=== PATIENT | female | born 1950 | race Caucasian/White ===

== ENCOUNTER → 2018-04-19 | Outpatient (CLI) | payer MEDICARE ==
[2018-04-19 12:18] LABS: Basophils % (A) 1 %; Eosinophils # (A) 0.2 k/uL (0-0.7); Eosinophils % (A) 3 %; HCT 38.8 % (34.0-46.0); HGB 12.3 gm/dL (11.4-16.0); Lymphocytes # (A) 1.3 k/uL (1.0-4.8); Lymphocytes % (A) 25 %; MCH 30.3 pg (25.0-35.0); MCHC 31.8 g/dL (31.0-37.0); MCV 95.4 fL (80.0-100.0); Mean Platelet Volume 7.9; Monocytes # (A) 0.3 k/uL (0-1.0); Monocytes % (A) 6 %; Neutrophils # (A) 3.1 k/uL (1.3-7.7); Neutrophils % (A) 61 %; Platelet Count 177 k/uL (150-450); RBC 4.07 m/uL (3.80-5.40); RDW 13.2 % (11.5-15.5); WBC 5.1 k/uL (3.8-10.6)
[2018-04-19 15:41] LABS: Erythrocyte Sedimentation Rate 17 mm/hr (0-20)
== END | disposition home or self-care (01) ==
LOC: LABWHC1 11:38
PROVIDERS: ATTEND Physical Medicine & Rehabilitation
DX: M47.812 Spondylosis without myelopathy or radiculopathy, cervical region (principal); G25.2 Other specified forms of tremor; G24.9 Dystonia, unspecified; M50.122 Cervical disc disorder at C5-C6 level with radiculopathy; G56.01 Carpal tunnel syndrome, right upper limb; M47.817 Spondylosis without myelopathy or radiculopathy, lumbosacral region; M51.17 Intervertebral disc disorders with radiculopathy, lumbosacral region; M31.6 Other giant cell arteritis; Z98.890 Other specified postprocedural states
CPT/HCPCS: 36415; 85025; 85652; 86140

== ENCOUNTER → 2018-04-26 | Outpatient (CLI) | payer MEDICARE ==
--- NOTE | 2018-05-01 09:22 | P.ARTDOP ---
Arterial Doppler LOWER EXTREMITY ARTERIAL DOPPLER: DATE OF SERVICE: 04/26/2018 Reason for study: Bilateral leg pain. Doppler waveforms: Multiphasic bilaterally throughout. Pulse volume recording: []. Pressure gradients: None. Ankle-brachial indices: Greater than 1 bilaterally. Toe pressures: [] on the right, [] on the left Impression: Normal study.
== END | disposition home or self-care (01) ==
LOC: RADUSWWP 11:36
PROVIDERS: ATTEND Physical Medicine & Rehabilitation
DX: M48.062 Spinal stenosis, lumbar region with neurogenic claudication (principal); M79.604 Pain in right leg; M79.605 Pain in left leg
CPT/HCPCS: 93922

== ENCOUNTER → 2022-07-28 | Outpatient (CLI) | payer MEDICARE ==
[2022-07-28 12:47] LABS: Partial Thromboplastin Time 23.7 sec (22.0-30.0); Prothrombin Time 10.6 sec (9.0-12.0)
[2022-07-28 21:59] LABS: HCT 38.2 % (37.2-46.3); HGB 11.4 g/dL (12.0-15.0); MCHC 29.8 g/dL (32.0-37.0); MCV 87.2 fL (80.0-97.0); Mean Platelet Volume 11.7 fL (9.5-12.2); NRBC Per 100 WBC 0 /100 WBCS (0.0-0.0); Platelet Count 156 X 10*3/uL (140-440); RBC 4.38 X 10*6/uL (4.10-5.20); RDW 14.9 % (11.5-14.5); WBC 4.07 X 10*3/uL (4.50-10.00)
[2022-07-28 23:26] LABS: African American GFR (CKD) 104.8 (60.0-200.0); Albumin 4.3 g/dL (3.8-4.9); Albumin/Globulin Ratio 1.65 (1.60-3.17); Blood Urea Nitrogen 13.2 mg/dL (9.0-27.0); Calcium 9.4 mg/dL (8.7-10.3); Globulin 2.6 g/dL (1.6-3.3); Non-African American GFR(CKD) 90.4 (60.0-200.0); Potassium 4.2 mmol/L (3.5-5.5); Total Bilirubin 0.6 mg/dL (0.30-1.20); Total Protein 6.9 g/dL (6.2-8.2)
[2022-07-29 03:29] LABS: Appearance,Urine Clear (Clear); Bilirubin,Urine Negative (Negative); Blood,Urine Negative (Negative); Color,Urine Yellow (Yellow); Ketones,Urine Negative (Negative); Nitrite,Urine Negative (Negative); Specific Gravity,Urine 1.009 (1.001-1.030); Urobilinogen,Urine 0.2 (0.2,1.0)
[2022-07-29 03:36] LABS: Bacteria,Urine None Seen /HPF (None Seen)
== END | disposition home or self-care (01) ==
LOC: LABPAT 11:12
PROVIDERS: ATTEND Orthopaedic Surgery
DX: Z01.812 Encounter for preprocedural laboratory examination (principal); M16.11 Unilateral primary osteoarthritis, right hip; I51.7 Cardiomegaly; R94.31 Abnormal electrocardiogram [ECG] [EKG]
CPT/HCPCS: 80053; 81001; 85027; 85610; 85730; 87070; 93005

== ENCOUNTER 2022-08-08 07:20 | Day surgery (SDC) | payer MEDICARE ==
[2022-08-01 14:11] VITALS: BMI 29.8
[~2022-08-08 07:20] MED LIST: ACETAMINOPHEN TAB 500 MG TAB PO PRN; DEXAMETHASONE SOD PHOSPHATE 4 MG/ML 1 ML VIAL IV ONE; GABAPENTIN 300 MG CAP PO PRN; HYDROmorphone 0.5 MG/0.5 ML SYRINGE IVP PRN; LIDOCAINE 1% (10MG/ML) FOR IV START INTRADERMA PRN; MELOXICAM 7.5 MG TAB PO PRN; ONDANSETRON 4 MG/2 ML VIAL IVP ONE; TRANEXAMIC ACID IN NACL,ISO-OS 1,000 MG in SALINE 1 100ML.BAG IVPB PRN
[2022-08-08] MEDS: LACTATED RINGERS 1,000 ML IV SCH ×3 (08:16→20:42)
[2022-08-08] MEDS ORDERED: MIDAZOLAM 2 MG/2 ML VIAL IVP ONE (08:33)
[2022-08-08] MEDS ORDERED: GLYCOPYRROLATE 0.2 MG/ML 2 ML VIAL ONE (08:53)
[2022-08-08] MEDS ORDERED: PHENYLEPHRINE-0.9% NACL SYG 1,000 MCG/10 ML SYRINGE ONE (08:53)
[2022-08-08] MEDS ORDERED: ROPIVACAINE 5 MG/ML 30 ML VIAL ONE (08:53)
[2022-08-08] MEDS ORDERED: fentaNYL (PF) 50 MCG/ML 2 ML AMP ONE (08:53)
[2022-08-08] MEDS ORDERED: ePHEDrine 50 MG/ML 1 ML VIAL ONE (08:53)
[2022-08-08] MEDS ORDERED: PROPOFOL 10 MG/ML 20 ML VIAL IV ONE (08:53)
[2022-08-08] MEDS ORDERED: WATER FOR INJECTION, STERILE 10 ML VIAL IV ONE (08:53)
[2022-08-08] MEDS ORDERED: MIDAZOLAM 2 MG/2 ML VIAL ONE (08:53)
[2022-08-08] MEDS ORDERED: SODIUM CHLORIDE 0.9% (PF) 10 ML VIAL ONE (08:53)
[2022-08-08] MEDS ORDERED: ceFAZolin 1,000 MG in SODIUM CHLORIDE 0.9% 1,000 ML IRRIGATION ONE (08:59)
[2022-08-08] MEDS ORDERED: ROPIVACAINE 5 MG/ML 30 ML VIAL MISCELLANE ONE ×2 (09:29→09:59)
[2022-08-08] MEDS ORDERED: LACTATED RINGERS 1,000 ML IV ONE (09:53)
--- NOTE | 2022-08-08 10:07 | P.OP ---
Date of Procedure: 08/08/22 Preoperative Diagnosis: Severe osteoarthritis right hip Postoperative Diagnosis: Severe osteoarthritis right hip Procedure(s) Performed: Right total hip arthroplasty with a direct anterior approach Implants: [employer] Polarstem standard size 5 with a collar [employer] R3, 3 hole hemispherical acetabular shell, 52 mm [employer] Reflection 6.5 mm cancellus screw, 20 mm 2 [employer] R3, XLPE 20 acetabular liner [employer]hew Oxinium femoral head 36 m, +0 All components were press-fit. The articulation is Oxinium on polyethylene. Anesthesia: spinal Surgeon: Wilfred Garcia [employer] Text[employer] Supervisor #1: Yaquelin Booker Estimated Blood Loss (ml): 500 Pathology: other (Femoral head) Condition: stable Disposition: PACU Indications for Procedure: After failure of conservative treatment we discussed the surgical and nonsurgical treatment options at length. Patient wishes to proceed with a total hip arthroplasty with a direct anterior approach. Complications specific to this procedure were discussed at length, including but not limited to infection, leg length discrepancy, dislocation, nerve injury, and fracture. Covid-19 was also discussed at length with the patient, and they are aware of the current policies and procedures. The patient was given the option of delaying surgery, but they elect to proceed knowing these risks. Patient is aware of all these complications and informed consent was obtained Operative Findings: The operative findings are consistent with severe osteoarthritis of the right hip Description of Procedure: The patient was seen and evaluated in the preoperative area and the consent was reviewed. The operative site was marked with a skin marker. The patient verified the procedure and operative site. A GHULAM block was placed by anesthesia in the preoperative area. The patient was then brought to the operating room and given preoperative antibiotics intravenously. 1 g of Tranexamic acid was also given intravenously. A spinal anesthetic was administered by the anesthesia department. The patient was then placed on the [place] table with the bony prominences well-padded. The hip area was then prepped with a ChloraPrep solution and draped in the usual sterile fashion. A universal timeout was then performed, which confirmed the patient's name, surgical site, ALLERGIES, and procedure being performed on the consent. Next the incision site was located at 1 cm distal and 4 cm lateral to the anterior superior iliac spine. The skin and subcutaneous tissues were sharply incised. Incision was carefully dissected down to the fascia overlying the tensor fascia chelsie muscle. This fascia was then incised in line with the muscle fibers. Care was taken to stay laterally in order to avoid injuring the lateral femoral cutaneous nerve. Next, using blunt finger dissection, the tensor fascia chelsie muscle was dissected off its investing fascia. The muscle was then carefully retracted laterally with a cobra retractor over the lateral neck of the femur. Next, the circumflex vessels were identified and cauterized using the Aquamantis device. The anterior hip capsule was then exposed. The capsule was then opened and an inverted T fashion. The retractors were then placed intracapsularly. The retractors were maintained intracapsular throughout the procedure. The proximal femur was then visualized. Fluoroscopic x-rays were then taken in order to evaluate the preoperative leg lengths. A small amount of traction was placed on the leg. The femoral neck was then osteotomized at the appropriate level above the lesser trochanter. A small wedge of bone was then removed from the remaining femoral head. Next, using a corkscrew the femoral head was removed from the acetabulum. On gross visual inspection, the femoral head had complete loss of articular cartilage and multiple periarticular osteophytes. The femoral head was then measured. Attention was then turned to the acetabulum. The acetabulum was exposed and any remaining labrum was excised. Sequential reaming of the acetabulum was performed using fluoroscopic guidance until there was a good bed of bleeding cancellus bone. When the appropriate size was reached, a trial was then placed. The position and fit of the trial was checked with fluoroscopy. The trial was then removed. Then, using fluoroscopic guidance, the final implant was impacted at 20 of anteversion and 40 of abduction, and fully seated in the acetabulum. 2 screws were then placed in the acetabulum. Again fluoroscopy was used to check position of the screws. Next, the liner was then impacted, with a 20 elevated liner located in the anterior superior quadrant. Component locking was confirmed. Attention was then directed to the femur. With the aid of the [place] table, the femur was externally rotated to approximately 130, extended, and adducted under the opposite leg. A side hook was then placed under the proximal femur, and the side hook elevator was used to elevate the proximal femur while releasing the capsule. Retractors were then placed. A capsular release was performed, as well as a release of the conjoined tendon, which afforded excellent visualization of the proximal femur. Next, a box osteotome was used to lateralize the proximal femur. A stone hand was then used to locate the femoral canal. Sequential broaching was then performed with appropriate size which afforded excellent fixation in the proximal femur. A trial was then placed with appropriate head and neck, and the hip was gently reduced with the aid of the [place] table. Fluoroscopy was then used to check position of the components, as well as to evaluate the leg lengths and offset. The leg lengths and offset were measured as closely as possible to ensure stability of the hip. The hip was then gently dislocated and the trials were then removed. Final implants were then impacted and the hip was again reduced. Final fluoroscopic x-rays confirmed that the components were in anatomic position. The leg lengths and offset were measured and were found to coincide with the trial measurements. The hip was also taken through range of motion, and found to be stable. The hip was then copiously irrigated with antibiotic solution with pulsatile lavage. The hip was then irrigated with Irrisept solution. The soft tissues were then injected with a ropivacaine solution. A second dose of 1 g of Tranexamic acid was also given intravenously. The fascia was then closed with 2-0 strata fix suture. The subcutaneous tissue was closed with 3-0 Vicryl. The subcuticular tissue was closed with 3-0 strata fix suture. The skin was then closed with Exofin skin glue. After the glue and dried, and Optifoam silver impregnated dressing was applied. The patient was then transferred to the recovery room in stable condition. The customer assistant LAURYN Pnea was required due to the complexity of surgery, and the need for skilled medical or surgical instrument maker for positioning, draping, exposure, retraction, and closure of the wound.
--- NOTE | 2022-08-08 10:20 | XR ---
EXAMINATION TYPE: XR Hip Limited RT DATE OF EXAM: 08/08/2022 COMPARISON: NONE HISTORY: Postop TECHNIQUE: One view submitted. FINDINGS: There is postsurgical change in near anatomic alignment. DAP 1.2229 IMPRESSION: 1. Postoperative change. Appears in near-anatomic alignment.
--- NOTE | 2022-08-08 10:21 | FL ---
EXAMINATION TYPE: FL guidance operating room DATE OF EXAM: 08/08/2022 HISTORY: Fluoroscopy time 1.2229 DAP fluoroscopy provided. IMPRESSION: 1. Fluoroscopy time.
[2022-08-08] MEDS ORDERED: ONDANSETRON 4 MG/2 ML VIAL IVP PRN (10:32)
[2022-08-08] MEDS ORDERED: NALOXONE 0.4 MG/ML 1 ML VIAL IV PRN (10:32)
[2022-08-08] MEDS ORDERED: HYDROmorphone 0.5 MG/0.5 ML SYRINGE IVP PRN ×3 (10:32)
[2022-08-08] MEDS ORDERED: MAGNESIUM HYDROXIDE 2,400 MG/10 ML CUP PO PRN (10:32)
--- NOTE | 2022-08-08 11:09 | XR ---
EXAMINATION TYPE: XR Hip Limited RT DATE OF EXAM: 08/08/2022 COMPARISON: NONE HISTORY: Postop TECHNIQUE: One view submitted. FINDINGS: There is postsurgical change in near anatomic alignment. There is soft tissue edema and emphysema. IMPRESSION: 1. Postoperative change. Appears in near-anatomic alignment.
[2022-08-08] MEDS ORDERED: FAMOTIDINE 20 MG TAB PO PRN (14:30)
--- NOTE | 2022-08-08 14:38 | P.CONS ---
History of Present Illness - Reason for Consult Consult date: 08/08/22 HTN Requesting physician: Wilfred Garcia - Chief Complaint knee pain - History of Present Illness Patient is a 72-year-old female with Crohn's disease, MAKSIM, GERD, hypertension, SVT, hypothyroidism, essential tremor and ALLERGIC rhinitis who presented for direct anterior right total hip arthorplasty. She tolerated the procedure well without any immediate post-op complications. Patient seen and examined at bedside. She is having slight nausea, she states that she did get a little lightheaded when she stood up. She denies any chest pain or shortness of breath. She had a sinus infection approximately 4 weeks ago but denies any more recent cough, cold, fever, flu. Vital signs reviewed General: nontoxic, no distress, appears at stated age Derm: warm, dry ENT: Nose and ears atraumatic, no thrush, no pharyngeal erythema Cardiovascular: S1S2 reg, no murmur, positive posterior tibial pulse bilateral, no edema Lungs: clear to auscultation bilateral, no rhonchi, no rales, no wheeze, no accessory muscle use Abdominal: soft, nontender to palpation, no guarding, no appreciable organomegaly, normal bowel sounds Ext: no gross muscle atrophy, no contractures Psych: Alert, oriented, appropriate affect Assessment: 72-year-old female status post direct anterior right total hip arthorplasty MAKSIM GERD Hypertension Hypothyroidism History of SVT Imaging: None new Data Review: Preop labs reviewed and hemoglobin 11.4 Plan: - Hold enalapril/hydrochlorothiazide until postop labs are back -Patient has already been evaluated by her instrument/control technician who will manage per inflectra post op - resume levothyroixine 50 mcg daily, flnose 1 spray each nostril daily, zyrtec 10 mg daily - follow BP - check CBC and BMP in AM - Monitor closely for infection given use of TNF- alpha inhibitor for crohns disease. Thank you for allowing us to participate in the care of this pleasant patient. Do not hesitate to contact us with questions. Someone can be reached from the [facility] hospitalist group all hours of the day at [phone] or via [employer]. Past Medical History Past Medical History: Fibromyalgia, GERD/Reflux, Hyperlipidemia, Hypertension, Mitral Valve Prolapse (MVP), Osteoarthritis (OA), Sleep Apnea/CPAP/BIPAP, Thyroid Disorder Additional Past Medical History / Comment(s): CROHN'S. TREMORS. USES CPAP History of Any Multi-Drug Resistant Organisms: None Reported Past Surgical History: Back Surgery, Bowel Resection, Cholecystectomy, Hernia Repair, Hysterectomy, Tonsillectomy Additional Past Surgical History / Comment(s): BILAT KNEE SCOPES. RT SHOULDER. BILAT CTR. BILAT BUNIONECTOMY. LT OOPHORECTOMY Past Anesthesia/Blood Transfusion Reactions: Postoperative Nausea & Vomiting (PONV) Past Psychological History: Anxiety Smoking Status: Never smoker Past Alcohol Use History: Occasional Past Drug Use History: None Reported - Past Family History Sister(s) Family Medical History: Cancer Medications and Allergies Home Medications Medication Instructions Recorded Confirmed Type Acetaminophen [Tylenol Extra 1,000 mg PO BID PRN 08/01/22 08/01/22 History Strength] Aspirin EC [Ecotrin Low Dose] 81 mg PO DAILY 08/01/22 08/01/22 History Calcium Citrate/Vitamin D3 1 each PO DAILY 08/01/22 08/01/22 History [Citracal + D Maximum Caplet] Cetirizine HCl [Zyrtec] 10 mg PO DAILY 08/01/22 08/01/22 History Enalapril/Hydrochlorothiazide 1 each PO DAILY 08/01/22 08/01/22 History [Vaseretic 5-12.5 mg Tab] Estrogens, Conjugated Cream 1 applicator VAGINAL SA 08/01/22 08/01/22 History [Premarin Vaginal Cream] Famotidine [Pepcid AC] 10 mg PO DAILY PRN 08/01/22 08/01/22 History Fluticasone Nasal [place] [Flonase 1 spray EA NOSTRIL DAILY 08/01/22 08/01/22 History Nasal [place]] Infliximab-Dyyb [Inflectra] 500 mg IV Q56D 08/01/22 08/01/22 History Levothyroxine Sodium [Synthroid] 50 mcg PO DAILY 08/01/22 08/01/22 History Multivit with Calcium,Iron,Min 1 each PO DAILY 08/01/22 08/01/22 History [Women's Multivitamin] Propranolol [Inderal] 20 mg PO BID 08/01/22 08/01/22 History Vitamin B Complex 1 each PO DAILY 08/01/22 08/01/22 History Aspirin [Adult Low Dose Aspirin EC] 81 mg PO BID #1 tab 08/08/22 Rx HYDROcodone/APAP 7.5-325MG [[place] 1 - 2 tab PO Q6HR PRN #32 tab 08/08/22 Rx 7.5-325] Meloxicam 7.5 mg PO DAILY PRN #30 tablet 08/08/22 Rx Ondansetron Odt [Zofran Odt] 4 mg PO Q8HR PRN #14 tab 08/08/22 Rx Sennosides-Docusate Sodium 1 tab PO BID #60 tablet 08/08/22 Rx [Senokot-S] Allergies Allergy/AdvReac Type Severity Reaction Status Date / Time ampicillin Allergy Rash/Hives Verified 08/08/22 07:54 Milk Containing Products Allergy SYNCOPE Verified 08/08/22 07:54 [Dairy] Penicillins Allergy Rash/Hives Verified 08/08/22 07:54 sulfamethoxazole Allergy ANGIOEDEMA Verified 08/08/22 07:54 [From Bactrim] trimethoprim [From Bactrim] Allergy ANGIOEDEMA Verified 08/08/22 07:54 levofloxacin [From Levaquin] AdvReac Confusion Verified 08/08/22 07:54 wheat AdvReac Diarrhea Verified 08/08/22 07:54 Physical Exam Osteopathic Statement: *. No significant issues noted on an osteopathic structural exam other than those noted in the History and Physical/Consult. Vitals: Vital Signs Temp Pulse Pulse Resp BP Pulse Ox 08/08/22 12:01 59 L 16 147/71 98 08/08/22 11:46 51 L 16 152/76 98 08/08/22 11:31 63 16 158/71 98 08/08/22 11:15 59 L 16 154/77 100 08/08/22 11:03 60 16 146/78 100 08/08/22 10:45 58 L 16 137/71 100 08/08/22 10:28 96.9 F L 65 16 93/47 100 08/08/22 08:45 61 16 170/81 100 08/08/22 08:15 98.6 F 64 20 175/91 97 Intake and Output 08/07/22 08/08/22 08/08/22 22:59 06:59 14:59 Intake Total 1151 Output Total 900 Balance 251 Intake: IV 1151 Output: Urine 400 Estimated Blood Loss 500 Other: Weight 92.2 kg
[2022-08-08] MEDS: PROPRANOLOL 20 MG TAB PO SCH ×2 (14:51→22:38)
[2022-08-08] MEDS: HYDROcodone/APAP 7.5-325MG 1 EACH TAB PO PRN (20:39)
[2022-08-08] MEDS: ASPIRIN 81 MG PO SCH (20:39)
[2022-08-08] MEDS ORDERED: SENNOSIDES-DOCUSATE SODIUM 1 EACH TAB PO SCH (21:00)
[2022-08-09] MEDS: ACETAMINOPHEN TAB 500 MG TAB PO PRN ×2 (05:21→11:39)
[2022-08-09] MEDS ORDERED: LEVOTHYROXINE 50 MCG TAB PO SCH (06:30)
[2022-08-09 08:18] VITALS: BP 119/65; PULSE 66; RESP 18; TEMP 99.3
[2022-08-09] MEDS ORDERED: LORATADINE 10 MG TAB PO SCH (09:00)
[2022-08-09] MEDS ORDERED: MELOXICAM 7.5 MG TAB PO SCH (09:00)
[2022-08-09] MEDS ORDERED: FLUTICASONE 50MCG/SPRAY NASAL 16GM EA NOSTRIL SCH (09:00)
--- NOTE | 2022-08-09 09:11 | P.DS ---
Providers Date of admission: 08/08/2022 Expected date of discharge: 08/09/22 Attending physician: Wilfred Garcia Consults: 08/08/22 10:32 Consult Physician Routine Consulting Provider: Adore Agrawal Consult Reason/Comments: Medical management Do you want consulting provider notified?: Yes Primary care physician: Stated None - Discharge Diagnosis(es) (1) Status post total hip replacement, right Current Visit: Yes Status: Acute (2) Right hip pain Current Visit: Yes Status: Acute (3) Hyperlipidemia Current Visit: Yes Status: Acute (4) Hypertension Current Visit: Yes Status: Acute (5) Thyroid disorder Current Visit: Yes Status: Acute (6) Fibromyalgia Current Visit: Yes Status: Acute (7) Osteoarthritis of right hip Current Visit: Yes Status: Acute Hospital Course: This is a pleasant 72-year-old female who presented with severe osteoarthritis of the right hip who failed outpatient conservative therapy. She was admitted for a right total hip arthroplasty with direct anterior approach. The patient tolerated the procedure well and did well postoperatively. Condition on day of discharge stable. Patient feels she is ready for discharge today. Patient will be discharged home. Patient was cleared preoperatively for surgery by medicine. Patient currently denies any nausea, vomiting, fever, or chills. Patient is eating and voiding freely without difficulty. Patient may shower Optifoam dressing intact. Patient may remove Optifoam dressing in 7 days and shower without a dressing at that time. Patient should refrain from driving until at least after their first follow-up appointment in the office. She may weight-bear as tolerated on the right lower extremity with the assistance of a walker. MAPS has been reviewed. An "Opiod Start Talking" Form has been signed and placed in the patient's chart. A prescription has been written for hydrocodone 7.5 mg/25 mg, 1-2 tabs every 6 hours as needed for acute pain, dispensed #32. Patient's other medical diagnoses include hypertension, hyperlipidemia, thyroid disorder, and fibromyalgia. Procedures: Right total hip arthroplasty with direct anterior approach Patient Condition at Discharge: Stable Plan - Discharge Summary Discharge Rx Participant: No New Discharge Prescriptions: New Aspirin [Adult Low Dose Aspirin EC] 81 mg PO BID #1 tab HYDROcodone/APAP 7.5-325MG [[place] 7.5-325] 1 - 2 tab PO Q6HR PRN #32 tab PRN Reason: Pain Ondansetron Odt [Zofran Odt] 4 mg PO Q8HR PRN #14 tab PRN Reason: Nausea Meloxicam 7.5 mg PO DAILY PRN #30 tablet PRN Reason: Pain Sennosides-Docusate Sodium [Senokot-S] 1 tab PO BID #60 tablet No Action Enalapril/Hydrochlorothiazide [Vaseretic 5-12.5 mg Tab] 1 each PO DAILY Infliximab-Dyyb [Inflectra] 500 mg IV Q56D Multivit with Calcium,Iron,Min [Women's Multivitamin] 1 each PO DAILY Levothyroxine Sodium [Synthroid] 50 mcg PO DAILY Fluticasone Nasal [place] [Flonase Nasal [place]] 1 spray EA NOSTRIL DAILY Cetirizine HCl [Zyrtec] 10 mg PO DAILY Vitamin B Complex 1 each PO DAILY Calcium Citrate/Vitamin D3 [Citracal + D Maximum Caplet] 1 each PO DAILY Famotidine [Pepcid AC] 10 mg PO DAILY PRN PRN Reason: Heartburn Acetaminophen [Tylenol Extra Strength] 1,000 mg PO BID PRN PRN Reason: Pain Propranolol [Inderal] 20 mg PO BID Estrogens, Conjugated Cream [Premarin Vaginal Cream] 1 applicator VAGINAL SA Aspirin EC [Ecotrin Low Dose] 81 mg PO DAILY Discharge Medication List Acetaminophen [Tylenol Extra Strength] 1,000 mg PO BID PRN 08/01/22 [History] Aspirin EC [Ecotrin Low Dose] 81 mg PO DAILY 08/01/22 [History] Calcium Citrate/Vitamin D3 [Citracal + D Maximum Caplet] 1 each PO DAILY 08/01/22 [History] Cetirizine HCl [Zyrtec] 10 mg PO DAILY 08/01/22 [History] Enalapril/Hydrochlorothiazide [Vaseretic 5-12.5 mg Tab] 1 each PO DAILY 08/01/22 [History] Estrogens, Conjugated Cream [Premarin Vaginal Cream] 1 applicator VAGINAL SA 08/01/22 [History] Famotidine [Pepcid AC] 10 mg PO DAILY PRN 08/01/22 [History] Fluticasone Nasal [place] [Flonase Nasal [place]] 1 spray EA NOSTRIL DAILY 08/01/22 [History] Infliximab-Dyyb [Inflectra] 500 mg IV Q56D 08/01/22 [History] Levothyroxine Sodium [Synthroid] 50 mcg PO DAILY 08/01/22 [History] Multivit with Calcium,Iron,Min [Women's Multivitamin] 1 each PO DAILY 08/01/22 [History] Propranolol [Inderal] 20 mg PO BID 08/01/22 [History] Vitamin B Complex 1 each PO DAILY 08/01/22 [History] Aspirin [Adult Low Dose Aspirin EC] 81 mg PO BID #1 tab 08/08/22 [Rx] HYDROcodone/APAP 7.5-325MG [[place] 7.5-325] 1 - 2 tab PO Q6HR PRN #32 tab 08/08/22 [Rx] Meloxicam 7.5 mg PO DAILY PRN #30 tablet 08/08/22 [Rx] Ondansetron Odt [Zofran Odt] 4 mg PO Q8HR PRN #14 tab 08/08/22 [Rx] Sennosides-Docusate Sodium [Senokot-S] 1 tab PO BID #60 tablet 08/08/22 [Rx] Follow up Appointment(s)/Referral(s): Wilfred Garcia DO [Doctor of Osteopathic Medicine] - 08/22/22 1:50 pm Activity/Diet/Wound Care/Special Instructions: 1. Keep Optifoam dressing over the right hip intact over the next 7 days 2. Patient may shower with dressing intact over the surgical site of the right hip 3. Patient may shower without a dressing intact after 7 days his incision site remains clean and dry 4. Weight-bear as tolerated right lower extremity with a walker 5. Take medications as prescribed 6. Any questions or concerns patient may contact [facility] at [phone] Discharge Disposition: HOME WITH HOME HEALTH SERVICES
[2022-08-09] MEDS: LACTATED RINGERS 1,000 ML IV SCH ×2 (09:30)
[2022-08-09] MEDS: PROPRANOLOL 20 MG TAB PO SCH (09:35)
[2022-08-09] MEDS: ASPIRIN 81 MG PO SCH (09:35)
[2022-08-09 11:10] LABS: Basophils # (A) 0.01 X 10*3/uL (0.00-0.10); Basophils % (A) 0.2 %; Eosinophils # (A) 0.01 X 10*3/uL (0.04-0.35); Eosinophils % (A) 0.2 %; HGB 8.6 g/dL (12.0-15.0); Immature Grans, Automated 0.2 %; Lymphocytes # (A) 1.19 X 10*3/uL (0.90-5.00); Lymphocytes % (A) 22.2 %; MCH 26.1 pg (27.0-32.0); MCHC 31.9 g/dL (32.0-37.0); MCV 81.8 fL (80.0-97.0); Mean Platelet Volume 11.3 fL (9.5-12.2); Monocytes # (A) 0.59 X 10*3/uL (0.20-1.00); NRBC Per 100 WBC 0 /100 WBCS (0.0-0.0); Neutrophils # (A) 3.55 X 10*3/uL (1.80-7.70); Neutrophils % (A) 66.2 %; Platelet Count 154 X 10*3/uL (140-440); RDW 14.4 % (11.5-14.5); WBC 5.36 X 10*3/uL (4.50-10.00)
[2022-08-09 11:27] LABS: African American GFR (CKD) 104.8 (60.0-200.0); Anion Gap 7.4 mmol/L (10.00-18.00); BUN/Creat Ratio 17.17 Ratio (12.00-20.00); Blood Urea Nitrogen 10.3 mg/dL (9.0-27.0); Calcium 8.1 mg/dL (8.7-10.3); Carbon Dioxide 27.6 mmol/L (20.0-27.5); Non-African American GFR(CKD) 90.4 (60.0-200.0); Potassium 3.5 mmol/L (3.5-5.5)
[2022-08-09 11:56] LABS: HCT 27.2 % (34.0-46.0); MCH 26.8 pg (25.0-35.0); MCHC 33.1 g/dL (31.0-37.0); MCV 81.1 fL (80.0-100.0); Mean Platelet Volume 9.8; Platelet Count 137 k/uL (150-450); RBC 3.35 m/uL (3.80-5.40); RDW 14.9 % (11.5-15.5); WBC 5.3 k/uL (3.8-10.6)
--- NOTE | 2022-08-09 12:50 | P.PN ---
Subjective Progress Note Date: 08/09/22 (delayed charting seen at 0930) Patient is a 72-year-old female with Crohn's disease, MAKSIM, GERD, hypertension, SVT, hypothyroidism, essential tremor and ALLERGIC rhinitis who presented for direct anterior right total hip arthorplasty. She tolerated the procedure well without any immediate post-op complications. Patient seen and examined at bedside. She is doing well. Has not been working with therapy. No complaints at this time. Vital signs reviewed General: nontoxic, no distress, appears at stated age Cardiovascular: S1S2 reg, no murmur, positive posterior tibial pulse bilateral, Lungs: CTA bilateral, no rhonchi, no rales , no accessory muscle use Neuro: CN II-XI grossly intact, no focal neuro deficits Psych: Alert, oriented, appropriate affect Assessment: 72-year-old female status post direct anterior right total hip arthorplasty Acute blood loss anemia, anticipated outcome of surgery Crohn's disease with immunosuppression on TNF-apha inhibitor MAKSIM GERD Hypertension Hypothyroidism History of SVT Data Review: Labs reviewed from today hemoglobin 8.6, this was repeated and was 9), platelets 137 TMax in the Last 24 hours 99.9, pulse 66, respirations 18, blood pressure 119/65, O2 sat 96% on room air Plan: -Patient will follow-up with her measurement specialist as planned for her next TNF alpha infusion -She should take iron slow release 1 tablet daily for the next 30 days due to her acute blood loss anemia -Repeat CBC in 3-5 days for her anemia -Home medication reconciliation addressed. -Patient is medically optimized for discharge -Discussed with nurse and patient will have incentive spirometer for home use Thank you for allowing us to participate in the care of this pleasant patient. Do not hesitate to contact us with questions. Someone can be reached from the [facility] hospitalist group all hours of the day at [phone] or via [employer]. This dictation was prepared using [employer] voice recognition software. Though every attempt is made to correct errors during during dictation some may still exist. Objective - Vital Signs Vital signs: Vital Signs Temp 99.3 F 08/09/22 07:14 Pulse 66 08/09/22 07:14 Resp 18 08/09/22 07:14 BP 119/65 08/09/22 07:14 Pulse Ox 96 04/25/23 07:14 FiO2 Intake & Output 08/08/22 08/09/22 08/09/22 18:59 06:59 18:59 Intake Total 1151 Output Total 900 Balance 251 Weight 92.2 kg Intake: IV 1151 Output: Urine 400 Estimated Blood Loss 500 Other: # Voids 3 - Labs CBC & Chem 7: 08/09/22 11:27 08/09/22 07:04 Labs: Abnormal Lab Results - Last 24 Hours (Table) 08/09/22 08/09/22 08/09/22 Range/Units 07:04 07:04 11:27 RBC 3.30 L 3.35 L (4.10-5.20) X 10*6/uL Hgb 8.6 L 9.0 L (12.0-15.0) g/dL Hct 27.0 L 27.2 L (37.2-46.3) % MCH 26.1 L (27.0-32.0) pg MCHC 31.9 L (32.0-37.0) g/dL Plt Count 137 L (150-450) k/uL Eosinophils # 0.01 L (0.04-0.35) X 10*3/uL Carbon Dioxide 27.6 H (20.0-27.5) mmol/L Anion Gap 7.40 L (10.00-18.00) mmol/L Calcium 8.1 L (8.7-10.3) mg/dL
[2022-08-09] MEDS: HYDROcodone/APAP 7.5-325MG 1 EACH TAB PO PRN (14:28)
[2022-08-09] MEDS ORDERED: TEMAZEPAM 15 MG CAP PO PRN (22:00)
--- NOTE | 2022-08-10 14:04 | P.ANPRN ---
Procedure Note - Anesthesia - Nerve Block Performed Right Renny Time Out Performed: Yes (:32) Date of Procedure: 08/10/22 Procedure Start Time: Procedure Stop Time: : Location of Patient: PreOp Indication: Acute Post-Operative Pain, Requested by Surgeon (Dr Garcia) Sedation Type: Sedate with meaningful contact maintained Preparation: Sterile Prep Position: Supine Catheter: None Needle Types: Pajunk Needle Gauge: 21 Ultrasound used to visualize needle placement: Yes Ultrasound used to observe medication spread: Yes Injectate: 0.5% Ropivacaine (see comment for volume) (25cc +5cc PF Normal saline) Blood Aspirated: No Pain Paresthesia on Injection Noted: No Resistance on Injection: Normal Image Stored and Saved: Yes Events: Uneventful and Well Tolerated
== END 2022-08-09 14:41 | disposition home health service (06) ==
LOC: OR 07:20 → 4SSUR 10:28 → OR 08-09 14:41
PROVIDERS: ATTEND Orthopaedic Surgery
DX: M16.11 Unilateral primary osteoarthritis, right hip (principal); E78.5 Hyperlipidemia, unspecified; E03.9 Hypothyroidism, unspecified; I10 Essential (primary) hypertension; Z88.0 Allergy status to penicillin; Z90.710 Acquired absence of both cervix and uterus; Z90.89 Acquired absence of other organs; Z90.49 Acquired absence of other specified parts of digestive tract; Z82.49 Family history of ischemic heart disease and other diseases of the circulatory system; Z83.3 Family history of diabetes mellitus; Z86.59 Personal history of other mental and behavioral disorders
CPT/HCPCS: 97161; 64447; 76942; 86900; 86901; 80048; 85025; 85027; 86850; 88300; 73501; 27130; C1776; J2250; J1100; J0690 ×3; J2405; J2795; J1170